=== PATIENT | female | born 1940 | race Caucasian/White ===

== ENCOUNTER 2018-07-07 15:45 | Inpatient (IN) | payer MEDICARE ==
[2018-07-07 15:45] VITALS: BMI 22.8
[2018-07-07 16:23] LABS: BASO # 0.1 K/uL (0.0-0.2); BASO % 0.9 % (0.0-2.0); EOS # 0.2 K/uL (0.0-0.7); HEMOGLOBIN 12.3 g/dL (11.0-16.0); LYMPH % 31.7 % (20.0-40.0); MEAN CELL VOLUME 89.1 fL (81.0-99.0); MEAN CORPUSCULAR HEMOGLOBIN 29.9 pg (27.0-31.0); MEAN CORPUSCULAR HGB CONC 33.6 g/dL (33.0-37.0); MEAN PLATELET VOLUME 8.6 fL (7.2-11.7); MONO # 0.5 K/uL (0.0-0.8); MONO % 7.8 % (0.0-10.0); NEUT # 3.6 K/uL (1.8-7.0); NEUT % 56.6 % (50.0-75.0); NRBC % 0.1 % (0.0-2.0); RBC 4.1 Mil/uL (3.80-5.20); RED CELL DISTRIBUTION WIDTH 13.1 % (11.5-14.5); WHITE BLOOD COUNT 6.4 K/uL (4.8-10.8)
--- NOTE | 2018-07-07 16:26 | C.PDOC ---
History Of Present Illness 77 y/o female, with PMHx of diabetes, hypercholesterolemia, osteoporosis, and previous cellulitis, presents to ED for evaluation of chest pain since 9:30 this morning. As per patient's daughter, who is a physician, notes pain is located in the center of the chest and radiates to the left and the right side of the chest and to the back. Pain is described as throbbing. She also reports associated fatigue. Denies nausea, or vomiting. Pt was given 325mg of Aspirin as well as Ibuprofen prior to arrival. In the ED, pt reports mild chest pain. Denies shortness of breath, abdominal pain, headache, leg swelling, orthopnea, urinary symptoms, fever, chills, or any other associated symptoms at this time. Time Seen by Provider: 07/07/18 15:48 Chief Complaint (Nursing): Chest Pain History Per: Patient History/Exam Limitations: no limitations Onset/Duration Of Symptoms: Hrs Current Symptoms Are (Timing): Still Present Severity: Mild Quality: Other (throbbing) Exacerbating Factors: None Additional History Per: Patient, Family Past Medical History Reviewed: Historical Data, Nursing Documentation, Vital Signs Vital Signs: Last Vital Signs Temp 98.4 F 07/07/18 16:05 Pulse 68 07/07/18 18:53 Resp 18 07/07/18 18:53 BP 121/54 L 07/07/18 18:53 Pulse Ox 96 07/07/18 19:01 - Medical History PMH: Back Problems, Diabetes, Hypercholesterolemia, Osteoporosis Family History: States: Unknown Family Hx - Social History Hx Tobacco Use: No Hx Alcohol Use: No Hx Substance Use: No - Immunization History Hx Tetanus Toxoid Vaccination: No Hx Influenza Vaccination: Yes Hx Pneumococcal Vaccination: Yes Review Of Systems Except As Marked, All Systems Reviewed And Found Negative. Constitutional: Negative for: Fever, Chills Cardiovascular: Positive for: Chest Pain. Negative for: Palpitations, Orthopnea , Edema, Light Headedness Respiratory: Negative for: Cough, Shortness of Breath Gastrointestinal: Negative for: Nausea, Vomiting, Abdominal Pain Genitourinary: Negative for: Dysuria, Frequency, Hematuria Neurological: Negative for: Headache, Dizziness Physical Exam - Physical Exam Appears: Non-toxic, No Acute Distress Skin: Normal Color, Warm, Dry Head: Atraumatic, Normacephalic Eye(s): bilateral: Normal Inspection Oral Mucosa: Moist Neck: Normal ROM, Supple Chest: Symmetrical, No Tenderness Cardiovascular: Rhythm Regular, No Murmur Respiratory: Normal Breath Sounds, No Rales, No Rhonchi, No Wheezing Gastrointestinal/Abdominal: Soft, No Tenderness Extremity: Normal ROM, No Pedal Edema Neurological/Psych: Oriented x3, Normal Speech ED Course And Treatment - Laboratory Results Result Diagrams: 07/07/18 16:20 07/07/18 16:20 ECG: Interpreted By Me, Viewed By Me ECG Rhythm: Sinus Rhythm ECG Interpretation: No Acute Changes Interpretation Of ECG: No STEMI. Rate From EC (bpm) O2 Sat by Pulse Oximetry: 96 (RA) Pulse Ox Interpretation: Normal Medical Decision Making Medical Decision Makin yr old female w/ hx of Dm2, HLD p/w chest pain. Chest pain center of chest to mid back between scapula. EKG w/ out STEMI. Likely moderate Heart score. Will seek CT for dissection. AGE: 3 EK RF: 1 Trop: Pending Story: 1 Plan: Blood work Urinalysis Angio chest CT EKG IV fluids HS [address] unremarkable trop unremarkable pt in nad with VSS shared findings- appreciate consult w/ Dr. Surinder Gaffney- to be admitted to his service under tele. Disposition - Disposition Disposition Time: 18:30 Condition: GOOD Forms: [facility] (Ivorian) - Clinical Impression Clinical Impression: Chest pain - Scribe Statement The provider has reviewed the documentation as recorded by the Scribe KP All medical record entries made by the Scribe were at my direction and personally dictated by me. I have reviewed the chart and agree that the record accurately reflects my personal performance of the history, physical exam, medical decision making, and the department course for this patient. I have also personally directed, reviewed, and agree with the discharge instructions and disposition.
--- NOTE | 2018-07-07 16:32 | C.PDOC ---
Time Seen by Provider: 07/07/18 15:48 Chief Complaint (Nursing): Chest Pain Past Medical History Vital Signs: Last Vital Signs Temp 98.4 F 07/07/18 16:05 Pulse 80 07/07/18 16:05 Resp 17 07/07/18 16:05 BP 112/55 L 07/07/18 16:05 Pulse Ox 96 07/07/18 16:05 - Medical History PMH: Back Problems, Diabetes, Hypercholesterolemia, Osteoporosis - Social History Hx Tobacco Use: No Hx Alcohol Use: No Hx Substance Use: No - Immunization History Hx Tetanus Toxoid Vaccination: No Hx Influenza Vaccination: Yes Hx Pneumococcal Vaccination: Yes ED Course And Treatment O2 Sat by Pulse Oximetry: 96 Disposition - Disposition
[2018-07-07 16:35] LABS: ALB/GLOB RATIO 1.4 (1.0-2.1); ALBUMIN 3.9 g/dL (3.5-5.0); BLOOD UREA NITROGEN 25 mg/dL (7-17); CALCIUM 10.1 mg/dl (8.6-10.4); GFR NON-AFRICAN AMERICAN > 60
[2018-07-07 16:38] LABS: ALT/SGPT 25 U/L (9-52); AST/SGOT 34 U/L (14-36)
[2018-07-07] MEDS ORDERED: Sodium Chloride 0.9% 1,000 ML IV SCH (16:45)
[2018-07-07 16:46] LABS: B-TYPE NATRIURETIC PEPTIDE 58.3 pg/mL (0-900)
[2018-07-07] MEDS ORDERED: Iodixanol 320 MG/ML 100 ML BOTTLE IV ONE (17:24)
[2018-07-07 21:28] LABS: URINE AMORPHOUS SEDIMENT RARE /ul (<OCC); URINE BACTERIA RARE (<OCC); URINE BILIRUBIN NEGATIVE (NEGATIVE); URINE BLOOD NEGATIVE (NEGATIVE); URINE CLARITY Clear (Clear); URINE COLOR Straw (YELLOW); URINE GLUCOSE (UA) NORMAL (Normal); URINE LEUKOCYTE ESTERASE NEG Leu/uL (Negative); URINE PROTEIN NEGATIVE (NEGATIVE); URINE UROBILINOGEN NORMAL mg/dL (0.2-1.0)
[2018-07-08 00:56] LABS: CK-MB 1.74 ng/mL (0.0-3.38)
[2018-07-08 08:39] LABS: CK-MB 1.06 ng/mL (0.0-3.38)
--- NOTE | 2018-07-08 08:44 | CT ---
Date of service: 07/07/2018 PROCEDURE: CT Chest with contrast (Pulmonary Angiogram) HISTORY: cp to back COMPARISON: None available. TECHNIQUE: Axial computed tomography images were obtained of the chest in the pulmonary arterial phase of enhancement. Coronal and sagittal reformatted images were created and reviewed. Intravenous contrast dose: 100 mL Visipaque 320 Radiation dose: Total exam DLP = 318.11 mGy-cm. This CT exam was performed using one or more of the following dose reduction techniques: Automated exposure control, adjustment of the mA and/or kV according to patient size, and/or use of iterative reconstruction technique. FINDINGS: PULMONARY ARTERIES: Unremarkable. No pulmonary embolism. AORTA: No acute findings. No thoracic aortic aneurysm. LUNGS: No pulmonary infiltrate. Calcified granuloma posterior segment right upper lobe. 5 mm subpleural nodule in apical posterior segment left upper lobe. No followup required as per Fleischner society criteria. PLEURAL SPACES: Unremarkable. No effusion or pneumothorax. HEART: Unremarkable. No cardiomegaly. No significant pericardial effusion. LYMPH NODES: No lymphadenopathy. BONES, CHEST WALL: Moderate compression deformity of the T12 vertebral body, age indeterminate. No paraspinous hemorrhage noted to suggest acute fracture. Correlate clinically. OTHER FINDINGS: Unremarkable. IMPRESSION: Unremarkable CT pulmonary angiogram. No pulmonary embolus. Incidental 5 mm subpleural nodule in left upper lobe. Incidental calcified granuloma in right upper lobe. Moderate compression deformity of T12, age indeterminate. The preliminary findings for this examination were reported by [facility] at 6:33 p.m. on 07/07/2018. There is concurrence of this report with the preliminary findings.
[2018-07-08] MEDS ORDERED: FOLGARD OS PO SCH ×2 (10:00)
[2018-07-08] MEDS: Multiple Vitamins Tab PO SCH (10:38)
[2018-07-08] MEDS: Enoxaparin 40 mg Syringe SC SCH (10:38)
--- NOTE | 2018-07-08 18:14 | CP.PCM.CON ---
History of Present Illness - History of Present Illness History of Present Illness: INTERVENTIONAL CARDIOLOGY CONSULT I was asked to provide consultation by Dr Gaffney. Patient is a 77 year old female with a 20 yr history of DM, hypercholestserolemia who presents with unstable angina. Her symptomsbegan a few weeks ago with progressive ftigue and lack of energy. She then developed substernal chest pressure, described as central in location but travelling across the chest. Her symptoms occurred while walking and improved with rest. She has developed progressively worse pressure until yesterday when she developed chest pressure for over an hour. She had to sit down to rest, and symptoms improved. She was urged to go to the ER by the recommendation of her daughter who is a physician. She currently has no chest pain. Review of Systems - Constitutional Constitutional: absent: As Per HPI, Anorexia, Chills, Daytime Sleepiness, Excessive Sweating, Fatigue, Fever, Frequent Falls, Headache, Increased Appetite , Lethargy, Malaise, Night Sweats, Snoring, Sleep Apnea, Weight Gain, Weight Loss, Weakness, Other - EENT Eyes: absent: As Per HPI, Blind Spots, Blurred Vision, Change in Vision, Decreased Night Vision, Diplopia, Discharge, Dry Eye, Exophthalmos, Floaters, Irritation, Itchy Eyes, Loss of Peripheral Vision, Pain, Photophobia, Requires Corrective Lenses, Sees Flashes, Spots in Vision, Tunnel Vision, Other Visual Disturbances, Loss of Vision, Other Ears: absent: As Per HPI, Decreased Hearing, Ear Discharge, Ear Pain, Tinnitus, Abnormal Hearing, Disequilibrium, Dizziness, Other Nose/Mouth/Throat: absent: As Per HPI, Epistaxis, Nasal Congestion, Nasal Discharge, Nasal Obstruction, Nasal Trauma, Nose Pain, Post Nasal Drip, Sinus Pain, Sinus Pressure, Bleeding Gums, Change in Voice, Dental Pain, Dry Mouth, Dysphagia, Halitosis, Hoarsness, Lip Swelling, Mouth Lesions, Mouth Pain, Odynophagia, Sore Throat, Throat Swelling, Tongue Swelling, Facial Pain, Neck Pain, Neck Mass, Other - Breasts Breasts: absent: As Per HPI, Change in Shape, Mass, Pain, Nipple Discharge, Nipple Inversion, Skin Changes, Swelling, Other - Cardiovascular Cardiovascular: Chest Pain, Dyspnea - Respiratory Respiratory: Dyspnea - Gastrointestinal Gastrointestinal: absent: As Per HPI, Abdominal Pain, Belching, Bloating, Change in Bowel Habits, Change in Stool Character, Coffee Ground Emesis, Constipation, Cramping, Diarrhea, Dyspepsia, Dysphagia, Early Satiety, Excessive Flatus, Fecal Incontinence, Heartburn, Hematemesis, Hematochezia, Loose Stools, Melena, Nausea, Odynophagia, Temesmus, Vomiting, Other - Genitourinary Genitourinary: absent: As Per HPI, Change in Urinary Stream, Difficulty Urinating, Dysuria, Flank Pain, Hematuria, Pyuria, Nocturia, Urinary Incontinence, Urinary Frequency, Urinary Hesitance, Urinary Urgency, Voiding Freq/Small Amts, Freq UTI, Hx Renal/Bladder Calculi, Hx /Renal Surgery, Bladder Distension, Other - Musculoskeletal Musculoskeletal: absent: As Per HPI, Abnormal Gait, Arthralgias, Atrophy, Back Pain, Deformity, Joint Swelling, Limited Range of Motion, Loss of Height, Muscle Cramps, Muscle Weakness, Myalgias, Neck Pain, Numbness, Radiating Pain into Limb, Stiffness, Tingling, Other - Integumentary Integumentary: absent: As Per HPI, Acne, Alopecia, Bleeding Lesions, Change in Hair, Change in Nails, Change in Pigmentation, Changing Lesions, Dry Skin, Erythema, Furuncle, Hirsutism, Lesions, New Lesions, Non-Healing Lesions, Photosensitivity, Pruritus, Rash, Skin Pain, Skin Ulcer, Sores, Striae, Swelling , Unusual Bruising, Wounds, Jaundice, Other - Neurological Neurological: absent: As Per HPI, Abnormal Gait, Abnormal Hearing, Abnormal Movements, Abnormal Speech, Behavioral Changes, Burning Sensations, Confusion, Convulsions, Disequilibrium, Dizziness, Numbness, Focal Weakness, Frequent Falls , Headaches, Lack of Coordination, Loss of Vision, Memory Loss, Paresthesias, Radicular Pain, Restless Legs, Sensory Deficit, Syncope, Tingling, Tremor, Vertigo, Weakness, Other Visual Disturbances, Other - Psychiatric Psychiatric: absent: As Per HPI, Abnormal Sleep Pattern, Anhedonia, Anxiety, Auditory Hallucinations, Behavioral Changes, Change in Appetite, Change in Libido, Confusion, Depression, Difficulty Concentrating, Hallucinations, Homicidal Ideation, Hopelessness, Irritability, Memory Loss, Mood Swings, Panic Attacks, Paranoia, Suicidal Ideation, Visual Hallucinations, Tactile Hallucinations, Other - Endocrine Endocrine: absent: As Per HPI, Change in Body Appearance, Change in Libido, Cold Intolorance, Deepening of Voice, Excessive Sweating, Fatigue, Flushing, Heat Intolorance, Increase in Ring/Shoe/Hat Size, Palpitations, Polydipsia, Polyphagia, Polyuria, Other - Hematologic/Lymphatic Hematologic: absent: As Per HPI, Easy Bleeding, Easy Bruising, Lymphadenopathy, Other Past Patient History - Infectious Disease Hx of Infectious Diseases: None - Past Social History Smoking Status: Never Smoked - CARDIAC Hx Hypercholesterolemia: Yes - ENDOCRINE/METABOLIC Hx Diabetes Mellitus Type 2: Yes - MUSCULOSKELETAL/RHEUMATOLOGICAL Hx Falls: No - PSYCHIATRIC Hx Substance Use: No - SURGICAL HISTORY Hx Surgeries: Yes Hx Dilation and Curettage: Yes - ANESTHESIA Hx Anesthesia: Yes Hx Anesthesia Reactions: No Meds Allergies/Adverse Reactions: Allergies Allergy/AdvReac Type Severity Reaction Status Date / Time No Known Allergies Allergy Verified 07/07/18 15:56 - Medications Medications: Current Medications Aspirin (Aspirin Chewable) 81 mg PO DAILY [facility] Last Admin: 07/08/18 10:38 Dose: 81 mg Enoxaparin Sodium (Lovenox) 40 mg SC DAILY [facility] Last Admin: 07/08/18 10:38 Dose: 40 mg Sodium Chloride (Sodium Chloride 0.9%) 1,000 mls @ 50 mls/hr IV .Q20H [facility] Last Admin: 07/07/18 16:36 Dose: 50 mls/hr Metformin HCl (Glucophage Xr) 500 mg PO DAILY [facility] Last Admin: 07/08/18 09:09 Dose: Not Given Metoprolol Succinate (Toprol Xl) 12.5 mg PO DAILY [facility] Multivitamins (Hexavitamin) 1 tab PO DAILY [facility] Last Admin: 07/08/18 10:38 Dose: 1 tab Rosuvastatin Calcium (Crestor) 20 mg PO [facility] Physical Exam - Constitutional Appears: Non-toxic - Head Exam Head Exam: NORMAL INSPECTION - Eye Exam Eye Exam: Normal appearance - ENT Exam ENT Exam: Mucous Membranes Moist - Neck Exam Neck exam: Positive for: Full Rom - Respiratory Exam Respiratory Exam: NORMAL BREATHING PATTERN - Cardiovascular Exam Cardiovascular Exam: REGULAR RHYTHM - GI/Abdominal Exam GI & Abdominal Exam: Normal Bowel Sounds - Rectal Exam Rectal Exam: Deferred - Extremities Exam Extremities exam: Negative for: pedal edema - Back Exam Back exam: NORMAL INSPECTION - Neurological Exam Neurological exam: Alert, Oriented x3 - Psychiatric Exam Psychiatric exam: Normal Affect - Skin Skin Exam: Normal Color Results - Vital Signs Recent Vital Signs: Last Vital Signs Temp 97.8 F 07/08/18 12:50 Pulse 59 L 07/08/18 12:50 Resp 18 07/08/18 12:50 BP 119/69 07/08/18 12:50 Pulse Ox 98 07/08/18 12:50 - Labs Result Diagrams: 07/07/18 16:20 07/07/18 16:20 Labs: Laboratory Results - last 24 hr 07/07/18 07/08/18 07/08/18 21:21 00:20 06:48 POC Glucose (mg/dL) 93 Total Creatine Kinase 64 CK-MB (Mass) 1.74 Troponin I < 0.0120 Urine Color Straw Urine Clarity Clear Urine pH 7.0 Ur Specific [place] 1.044 H Urine Protein Negative Urine Glucose (UA) Normal Urine Ketones Negative Urine Blood Negative Urine Nitrate Negative Urine Bilirubin Negative Urine Urobilinogen Normal Ur Leukocyte Esterase Neg Urine WBC (Auto) 1 Urine RBC (Auto) 3 Amorphous Sediment Rare H Urine Bacteria Rare 07/08/18 08:09 POC Glucose (mg/dL) Total Creatine Kinase 56 CK-MB (Mass) 1.06 Troponin I < 0.0120 Urine Color Urine Clarity Urine pH Ur Specific [place] Urine Protein Urine Glucose (UA) Urine Ketones Urine Blood Urine Nitrate Urine Bilirubin Urine Urobilinogen Ur Leukocyte Esterase Urine WBC (Auto) Urine RBC (Auto) Amorphous Sediment Urine Bacteria - EKG Data EKG Interpreted by: Myself EKG shows normal: Sinus rhythm Assessment & Plan (1) Unstable angina Assessment and Plan: patient has high risk symptoms suggestive of CAD. The crescendo nature of her symptoms would make treadmill stress testing dangerous and potentially harmful. She has significant risk factors for CAD. She may require coronary intervention or CABG. I had a discussion with the patient and daughter regarding options. They will proceed with cardiac cathterization for diagnosis and thereapeutic options. They have insisted that since in this hospital they cannot have coronary intervention if required then they would like to be transferred for cardiac cath to an elective angioplasty hospital. I will make arrangement for transfer. continue ASA, lovenox. NPO after breakfast. Status: Acute (2) Diabetes Assessment and Plan: risk factor for CAD Status: Acute (3) Hypercholesterolemia Assessment and Plan: statin therapy Status: Acute
[2018-07-08 18:59] LABS: CK-MB 1.03 ng/mL (0.0-3.38)
--- NOTE | 2018-07-08 19:14 | CARD ---
APPROVED REPORT Date of service: 07/07/2018 EKG Measurement Heart [id number] <Conclusion> Normal sinus rhythm Normal Electrocardiogram
--- NOTE | 2018-07-08 23:18 | HP ---
HISTORY OF PRESENT ILLNESS: A 77-year-old female was brought in with a history of chest discomfort, which started while she was walking around in the [facility]. It got worse as she kept walking. She was accompanied by her daughter, who is a physician. This happened again twice and came to the emergency room where EKG in the room was unremarkable. Repeat EKG in the morning is unremarkable. The patient has had two more episodes of chest discomfort while lying in the bed. The pains are described as heaviness over the precordium, at times radiating to the neck. PERSONAL HISTORY: Does not smoke. Does not drink. ALLERGIES: DENIED. PAST MEDICAL HISTORY: Admitted for cellulitis of the leg many years ago. Admitted for back pains in 2010. No major surgeries. She goes to gym three times a week. FAMILY HISTORY: Negative for premature coronary artery disease. MEDICATIONS AT HOME: Include Boniva, Celebrex, aspirin, metformin 500 mg, and Zocor 40 mg. REVIEW OF SYSTEMS: CONSTITUTIONAL: Generalized weakness is noted more so in the past week or so. HEENT: No visual disturbances. No hearing problems. Negative for cough or hemoptysis. CARDIAC: Previously negative for chest pains and palpitations; however, for the past few days, she was not feeling well and chest pain started yesterday and has been there again this morning. NEUROLOGIC: Negative for headaches, seizures, TIAs, or CVAs. MUSCULOSKELETAL: Positive for back pain, herniated disk, being followed by Dr. Burciaga. PSYCH: No evidence of depression. GI: Negative for hematomas or melena. : Negative for hematuria. Positive for frequency. PHYSICAL EXAMINATION: GENERAL: Shows an elderly female, conscious, alert, looking younger than her stated age, in no acute distress. VITAL SIGNS: She is 5 feet, weighs 126 pounds. Her blood pressure is 126/70, heart rate of 68 and regular, respiratory rate of 14, afebrile. HEENT: Head is normocephalic. Eyes: No pallor, no icterus. NECK: Supple. LUNGS: Clear to percussion and auscultation. HEART: PMI is normal. S1, S2 are normal. No gallops. Soft midsystolic murmur in the mitral area, grade 1 to 2/6. ABDOMEN: Soft and nontender. EXTREMITIES: No cyanosis, clubbing, or edema. Distal pulses are intact. LABORATORY DATA: CBC and chem-7 are okay. EKG is unremarkable. Troponins were negative. ASSESSMENT AND PLAN: A 77-year-old female with a history of high cholesterol, history of diabetes, has recurrent chest pains, appear to be typical in nature. Given the history of typical exertional chest pains and, again, resting pains few times this morning, we would admit her and place her on local nitrates. Continue Crestor. Metformin will be held, and we will add small dose beta-blockers. The patient needs to have a coronary angiogram and possible intervention. At this point, we will transfer her to [facility] to avoid a repeat procedure for possibly intervention. Care of plan was discussed with Dr. Dorman and agrees with the same, for transfer and have a catheterization at the [facility]. This was also explained to the patient's daughter, who is a physician, about needing the catheterization at a facility where intervention can be done at the same time if needed. Surinder Gaffney MD
[2018-07-09 00:20] VITALS: BP 132/69; RESP 20; TEMP 98.1; O2SAT 96
[2018-07-09 08:19] VITALS: PULSE 61
[2018-07-09 08:36] LABS: PROTHROMBIN TIME 10.9 SECONDS (9.7-12.2)
[2018-07-09] MEDS: Multiple Vitamins Tab PO SCH (09:19)
[2018-07-09] MEDS: Enoxaparin 40 mg Syringe SC SCH (09:21)
[2018-07-09] MEDS ORDERED: Metoprolol Succinate 12.5 mg XL Tab PO SCH (10:00)
--- NOTE | 2018-07-09 18:29 | CARD ---
APPROVED REPORT Date of service: 07/08/2018 EKG Measurement Heart [id number] NM [id number] <Conclusion> Sinus bradycardia Possible Left atrial enlargement Borderline ECG
--- NOTE | 2018-07-10 10:56 | DS ---
DISPOSITION: Transferred to [facility] on ____/2017. HOSPITAL COURSE: A 77-year-old female with the history of multiple medical problems including diabetes, high cholesterol, back issues, was brought in with typical chest pains. She had recurrent chest pains, exertional. [place] was ruled out. The patient had cardiac catheterization. Given high-risk typical chest pain with diabetes and high cholesterol and back issues, we decided she is not a candidate for stress test. She may need possible interventions, so that is why the patient is being transferred to [facility] to have cath and possible intervention. Care of plan was explained to the patient's daughter who is a physician and was discussed with Dr. Dorman. She will be transferred today for cardiac cath and possible intervention. FINAL DIAGNOSES: Chest pains, possible angina, high likelihood of coronary artery disease, diabetes, and high cholesterol. Surinder Gaffney MD
== END 2018-07-10 | disposition short-term general hospital (02) | DRG 303 ==
LOC: C.ER 15:45 → C.9E 18:39 → C.6T 07-08 10:00 → C.9E 07-08 10:36 → C.6T 07-08 12:31
PROVIDERS: ADMIT Internal Medicine Cardiovascular Disease; ATTEND Internal Medicine Cardiovascular Disease
DX: I25.110 Atherosclerotic heart disease of native coronary artery with unstable angina pectoris (principal); E11.9 Type 2 diabetes mellitus without complications; E78.00 Pure hypercholesterolemia, unspecified; M81.0 Age-related osteoporosis without current pathological fracture; Z79.84 Long term (current) use of oral hypoglycemic drugs